=== PATIENT | male | born 1965 | race Caucasian/White ===

== ENCOUNTER 2016-11-11 08:11 | Emergency (ER) | payer BC, OTHER ==
[~2016-11-11] VITALS: Ht 170.2 cm; Wt 91.0 kg
[2016-11-11 08:14] VITALS: TEMP 36.6; Ht 170.2 cm; Wt 91.0 kg
[2016-11-11] MEDS ORDERED: KETOROLAC TROMETHAMINE 60 MG/2 ML VIAL IM STA (08:41)
[2016-11-11] MEDS ORDERED: KETOROLAC TROMETHAMINE 30 MG/ML VIAL IV STA (08:47)
[2016-11-11 09:11] LABS: PROTHROMBIN TIME (PATIENT) 10.9 SECONDS (9.0-12.0)
[2016-11-11 09:21] LABS: POINT OF CARE PRO-BNP 22 pg/ml (0-900); POINT OF CARE TROPONIN I < 0.030 ng/ml (0-0.045)
[2016-11-11 09:30] LABS: CKMB/CK RATIO 0.8 (0-3.0)
[2016-11-11] MEDS ORDERED: HYDROCODONE/ACETAMOPHEN 5/325MG TAB PO STA (09:57)
[2016-11-11] MEDS ORDERED: LORAZEPAM 2 MG/ML 1 ML VIAL IV STA (09:57)
--- NOTE | 2016-11-11 10:10 | DIAGNOSTIC IMAGING REPORT ---
CHEST 2 VIEWS ROUTINE CLINICAL HISTORY: 51 years-old Male presenting with left upper back pain. TECHNIQUE: PA and lateral views of the chest were obtained. COMPARISON: None. FINDINGS: Cardiomediastinal silhouette normal. Lungs and pleural spaces clear. Osseous structures and upper abdomen normal. IMPRESSION: 1. No acute cardiopulmonary disease. Electronically signed by: Nick Chan M.D. 11/11/2016 10:09 AM Dictated Date/Time: 11/11/2016 10:08 AM
--- NOTE | 2016-11-11 11:00 | DIAGNOSTIC IMAGING REPORT ---
C-SPINE ROUTINE 4 OR 5 VIEWS HISTORY: 51 years-old Male acute neck and shoulder pain without reported trauma COMPARISON: None available TECHNIQUE: 5 views of the cervical spine FINDINGS: The seventh vertebral segment is partially secured on the lateral view secondary to overlying shoulder. There is moderate intervertebral disc space narrowing at C5-C6 with mild intervertebral disc space narrowing at C6-C7. Endplate spurring is also most pronounced at these levels. Alignment is satisfactory without acute fracture or dislocation. Mild bilateral foraminal narrowing is present at C5-C6. Posterior elements also appear to be intact. There is no prevertebral soft tissue swelling. Lung apices appear clear. IMPRESSION: 1. No acute fracture or dislocation of the cervical spine. 2. Moderate intervertebral disc space narrowing at C5-C6 with endplate spurring causes mild bony foraminal narrowing bilaterally. 3. Mild intervertebral disc space narrowing at C6-C7. The above report was generated using voice recognition software. It may contain grammatical, syntax or spelling errors. Electronically signed by: Sid Garza M.D. 11/11/2016 10:59 AM Dictated Date/Time: 11/11/2016 10:56 AM
[2016-11-11] MEDS ORDERED: CYCL10TA6 PO (11:09)
[2016-11-11] MEDS ORDERED: HYDR-5688 PO (11:09)
--- NOTE | 2016-11-11 11:10 | EMERGENCY ROOM VISIT NOTE ---
History First contact with patient: 08:31 Chief Complaint: SHOULDER PAIN Stated Complaint: LEFT SHOULDER PAIN History of Present Illness The patient is a 51 year old male who presents to the Emergency Room with complaints of left shoulder pain which started 4 days ago. The patient denies any falls. 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 The patient states that the pain radiates to the back of his arm and under her shoulder blade which is worse with movement. He also gets some numbness in his index finger. He took 2 Advil on Friday without any relief. Last night he took an oxycodone from his brother to help him sleep. The patient states today he cannot get comfortable. The patient denies any chest pain or shortness of breath. The patient does admit to tobacco use but denies any recent travel or any recent leg pain. Review of Systems 10 system review was performed and was negative unless stated otherwise history of present illness. Past Medical/Surgical History No significant past medical history Social History Smoking Status: Never Smoker Smokeless Tobacco Use: Yes Alcohol Use: occasionally Drug Use: none Marital Status: Housing Status: lives with family Occupation Status: employed Current/Historical Medications No Active Prescriptions or Reported Meds Allergies Uncoded Allergies: NO KNOWN ALLERGIES (Allergy, Unknown, ., 11/11/16) Physical Exam Vital Signs Date Time Temp Pulse Resp B/P (MAP) Pulse Ox O2 Delivery O2 Flow Rate FiO2 11/11/16 09:51 72 18 145/100 97 11/11/16 08:14 36.6 77 18 154/100 97 Room Air Physical Exam GENERAL: 51-year-old white male appears uncomfortable secondary to left shoulder pain. MENTAL Status: Alert and oriented 3. NECK: Supple, no lymphadenopathy noted. No carotid bruits noted. LUNGS: Clear auscultation without wheezes rales or rhonchi. CARDIAC: Regular rate and rhythm without murmur. Pulses is full and equal throughout. ABDOMEN: Positive bowel sounds all 4 quadrants. Soft, nontender to palpation without organomegaly or masses. CERVICAL SPINE: No gross bony deformity noted. The patient is nontender to palpation over the spinous processes. He is some tenderness palpation in the left paravertebral region. LEFT SHOULDER: No gross bony deformity noted. The patient does not have any pain over the shoulder joint itself. The patient has tenderness palpation over the upper trapezius region. No erythema noted. Remainder chest wall is nontender. Professor [employer] strength is 5 out of 5 as compared to the right. Medical Decision & Procedures ER Provider Diagnostic Interpretation: C-SPINE ROUTINE 4 OR 5 VIEWS HISTORY: 51 years-old Male acute neck and shoulder pain without reported trauma COMPARISON: None available TECHNIQUE: 5 views of the cervical spine FINDINGS: The seventh vertebral segment is partially secured on the lateral view secondary to overlying shoulder. There is moderate intervertebral disc space narrowing at C5-C6 with mild intervertebral disc space narrowing at C6-C7. Endplate spurring is also most pronounced at these levels. Alignment is satisfactory without acute fracture or dislocation. Mild bilateral foraminal narrowing is present at C5-C6. Posterior elements also appear to be intact. There is no prevertebral soft tissue swelling. Lung apices appear clear. IMPRESSION: 1. No acute fracture or dislocation of the cervical spine. 2. Moderate intervertebral disc space narrowing at C5-C6 with endplate spurring causes mild bony foraminal narrowing bilaterally. 3. Mild intervertebral disc space narrowing at C6-C7. The above report was generated using voice recognition software. It may contain grammatical, syntax or spelling errors. Electronically signed by: Sid Garza M.D. 11/11/2016 10:59 AM CHEST 2 VIEWS ROUTINE CLINICAL HISTORY: 51 years-old Male presenting with left upper back pain. TECHNIQUE: PA and lateral views of the chest were obtained. COMPARISON: None. FINDINGS: Cardiomediastinal silhouette normal. Lungs and pleural spaces clear. Osseous structures and upper abdomen normal. IMPRESSION: 1. No acute cardiopulmonary disease. Electronically signed by: Nick Chan M.D. 11/11/2016 10:09 AM Dictated Date/Time: 11/11/2016 10:08 AM Laboratory Results Test 11/11/16 08:54 11/11/16 08:57 Prothrombin Time 10.9 SECONDS (9.0-12.0) Prothromb Time International Ratio 1.0 (0.9-1.1) Activated Partial Thromboplast Time 26.1 SECONDS (21.0-31.0) Partial Thromboplastin Ratio 1.0 Total Creatine Kinase 93 U/L (39-308) Creatine Kinase MB 0.7 ng/ml (0.5-3.6) Creatine Kinase MB Ratio 0.8 (0-3.0) Bedside D-Dimer 247 ng/mlFEU (0-450) Bedside Troponin I < 0.030 ng/ml (0-0.045) JH-Dit-W-Type Natriuretic Peptide 22 pg/ml (0-900) Medications Administered Medications (Trade) Dose Ordered Sig/Johnny Route Start Time Stop Time Status Last Admin Dose Admin Ketorolac Tromethamine (Toradol Inj) 30 mg NOW STAT IV 11/11/16 08:47 11/11/16 08:48 DC 11/11/16 08:59 30 MG Lorazepam (Ativan Inj) 1 mg NOW STAT IV 11/11/16 09:57 11/11/16 09:58 DC 11/11/16 10:05 1 MG Acetaminophen/ Hydrocodone Bitart ([place] 5/325 Tab) 2 tab NOW STAT PO 11/11/16 09:57 11/11/16 09:58 DC 11/11/16 10:04 2 TAB ED Course The patient was evaluated. The patient's EMR and medication list were reviewed. The patient initially stated that he drove himself to the emergency room and could not get someone to pick him up. IV access was obtained. The patient was given Toradol 30 mg IV for pain. Chest x-ray was ordered and interpreted by the radiologist and myself as above without any acute findings. Coags were normal. The care d-dimer was within normal range. Troponin was within normal range. The patient later stated that he was able to get his daughter to come pick him up and therefore he could receive something for pain. The patient was given Ativan 1 mg IV for muscle relaxer and [place] 5/325 mg 2 tablets by mouth for pain. An x-ray of the cervical spine was ordered and interpreted by the radiologist as above with some disc space narrowing at the C5 -C6 level and C6-C7 level. The patient was informed of the findings and was reevaluated. He was feeling much better. The patient was discharged home with his daughter driving. Medical Decision Differential diagnosis include pulmonary embolus, cervical radiculopathy, cervical fracture, spinal stenosis, muscular strain Impression Primary Impression: Strain of left trapezius muscle Additional Impression: Degenerative arthritis of cervical spine Departure Information Dispostion Home / Self-Care Condition GOOD Prescriptions Hydrocodone/Acetaminophen 5MG/325MG ([place] 5MG/325MG) Tab 1-2 TABLET PO Q6 Y for Pain, #20 TAB For Initial Treatment Prov: Joaquina, Xiomara M., PA-C 11/11/16 Cyclobenzaprine Hcl (FLEXERIL) 10 Mg Tab 10 MG PO TID, #21 TAB Prov: Xiomara Kunz PA-C 11/11/16 Referrals No Doctor, Assigned (PCP) Forms HOME CARE DOCUMENTATION FORM, IMPORTANT VISIT INFORMATION Patient Instructions My [facility] Additional Instructions May try moist heat intermittently to the affected area. Ibuprofen 600 mg every 6 hours with food for pain. Take [place] as needed for more severe pain. Do not drive while taking the [place]. Take Flexeril as directed. Do not drive while taking the Flexeril. Avoid any strenuous exercise which her upper body until symptoms are resolved. If symptoms are not improving recommend follow-up with your family doctor for possible referral to neurology or spine surgeon. Problem Qualifiers Primary Impression: Strain of left trapezius muscle Encounter type: initial encounter Qualified Codes: S46.812A - Strain of other muscles, fascia and tendons at shoulder and upper arm level, left arm, initial encounter Additional Impression: Degenerative arthritis of cervical spine Spinal osteoarthritis complication: with radiculopathy Qualified Codes: M47.22 - Other spondylosis with radiculopathy, cervical region
[2016-11-11 11:30] VITALS: BP 127/70; PULSE 70; O2SAT 98
== END 2016-11-11 11:44 | disposition home or self-care (01) ==
LOC: C.EDB 08:12
DX: S46.912A Strain of unspecified muscle, fascia and tendon at shoulder and upper arm level, left arm, initial encounter (principal); X58.XXXA Exposure to other specified factors, initial encounter; M50.322 Other cervical disc degeneration at C5-C6 level; M50.323 Other cervical disc degeneration at C6-C7 level

== ENCOUNTER 2017-08-02 13:15 | Emergency (ER) | payer BC, OTHER ==
[~2017-08-02] VITALS: Ht 170.2 cm; Wt 87.2 kg
[2017-08-02 13:21] VITALS: TEMP 37; Ht 170.2 cm; Wt 87.2 kg
[2017-08-02] MEDS ORDERED: SODIUM CHLORIDE 0.9% 1000ML 1,000 ML IV ONE (13:45)
[2017-08-02 14:10] LABS: BASO % 0.3 %; BASO ABS # 0.02 K/uL (0-0.2); EOS % 0.6 %; EOS ABS # 0.05 K/uL (0-0.5); HEMOGLOBIN 15.7 g/dL (14.0-18.0); IG# 0.02 K/uL (0.00-0.02); LYMPH % 12.4 %; LYMPH ABS # 0.96 K/uL (1.2-3.4); MEAN CELL VOLUME 84.2 fL (80-100); MEAN CORPUSCULAR HEMOGLOBIN 31.5 pg (25-34); MEAN CORPUSCULAR HGB CONC 37.4 g/dl (32-36); MEAN PLATELET VOLUME 8.9 fL (7.4-10.4); MONO % 6.2 %; MONO ABS # 0.48 K/uL (0.11-0.59); NEUT % 80.2 %; PLATELET COUNT 165 K/uL (130-400); RED CELL DISTRIBUTION WIDTH CV 12.4 % (11.5-14.5); RED CELL DISTRIBUTION WIDTH SD 37.7 fL (36.4-46.3); WHITE BLOOD COUNT 7.73 K/uL (4.8-10.8)
[2017-08-02] MEDS ORDERED: CIPR1TAB11 PO (14:21)
[2017-08-02 14:28] LABS: ALBUMIN 4.2 gm/dl (3.4-5.0); CALCIUM 9.1 mg/dl (8.5-10.1); CREATININE 1.07 mg/dl (0.60-1.40); POTASSIUM 3.5 mmol/L (3.5-5.1)
[2017-08-02 14:31] LABS: TOTAL PROTEIN 7.5 gm/dl (6.4-8.2)
[2017-08-02] MEDS ORDERED: OPTIRAY 320 IV PRN (14:45)
--- NOTE | 2017-08-02 14:46 | EMERGENCY ROOM VISIT NOTE ---
History First contact with patient: 13:25 Chief Complaint: URINARY SYMPTOMS Stated Complaint: PAIN IN BLADDER/ABD, ON ANITBIOTIC,PROSTATE INFECT Nursing Triage Summary: Dx with prostatis a few weeks ago and placed on atb- Cipro. Burning with urination. History of Present Illness The patient is a 52 year old male who presents to the Emergency Room with complaints of urinary symptoms and lower abdominal discomfort that has been going on for approximately the last 6 weeks. The patient reports burning with urination. He denies any blood in his urine. He denies any flank pain. No fever. The patient saw his primary care physician twice. He was treated once for UTI he went back to his primary care physician. A rectal exam was performed. He was told that he had prostatitis. The patient was put on a four- week course of antibiotics. He temporarily got better with a 2 week course of antibiotics.. His symptoms returned about 1 week after finishing the antibiotics. He is extremely nervous about what is going on. He denies any nausea, but his appetite has not been up to par. He also reports some changes in bowel habits. He feels like he has to go, and cannot have a significant bowel movement. He denies any blood in his stool. No history of diverticulitis. Review of Systems 10 system review performed and negative unless noted in HPI or below Past Medical/Surgical History GERD Social History Smoking Status: Never Smoker Alcohol Use: occasionally Drug Use: none Marital Status: Housing Status: lives with family Occupation Status: employed Current/Historical Medications Scheduled Ciprofloxacin Tab (Cipro), 250 MG PO BID Phenazopyridine HCl (Pyridium), 200 MG PO TID Physical Exam Vital Signs Date Time Temp Pulse Resp B/P (MAP) Pulse Ox O2 Delivery O2 Flow Rate FiO2 08/02/17 17:46 68 18 134/92 98 Room Air 08/02/17 16:47 60 18 121/67 98 Room Air 08/02/17 14:42 69 17 131/83 96 Room Air 08/02/17 13:21 37.0 88 20 140/91 95 Room Air Physical Exam VITALS: Vitals are noted on the nurse's note and reviewed by myself. Vital signs stable. GENERAL: 52-year-old male, mildly anxious in appearance,, SKIN: The skin was without rashes, erythema, edema, or bruising. There is no tenting of the skin. Capillary reflex less than 2 seconds. HEAD: Normocephalic atraumatic. MOUTH: Mucous membranes moist. NECK: Supple without nuchal rigidity. No lymphadenopathy. Cervical spine is nontender. No JVD. HEART: Regular rate and rhythm without murmurs gallops or rubs. LUNGS: Clear to auscultation bilaterally without wheezes, rales or rhonchi. No accessory muscle use. ABDOMEN: Positive bowel sounds x 4.Soft, tenderness to palpation in the suprapubic region, without organomegaly. No guarding or rebound tenderness. No CVA tenderness bilaterally MUSCULOSKELETAL: No muscle atrophy, erythema, or edema noted. Strength 5/5 throughout. NEURO: Patient was alert and oriented to person place and time. Normal sensation to touch. No focal neurological deficits. Medical Decision & Procedures ER Provider Diagnostic Interpretation: Scrotal US IMPRESSION: Trace bilateral hydroceles. Otherwise, normal testes. Electronically signed by: Chito Naik M.D. 08/02/2017 5:05 PM Dictated Date/Time: 08/02/2017 5:[address] abdomen and pelvisIMPRESSION: 1. No evidence of bowel obstruction. No evidence of free air 2. No evidence of acute diverticulitis. No evidence of acute appendicitis. 3. No evidence of hydronephrosis 4. Borderline bladder wall thickening Electronically signed by: Pepe Mak M.D. 08/02/2017 3:01 PM Dictated Date/Time: 08/02/2017 2:56 PM Laboratory Results 08/02/17 14:00 Red Blood Count 4.99, Mean Corpuscular Volume 84.2, Mean Corpuscular Hemoglobin 31.5, Mean Corpuscular Hemoglobin Concent 37.4, Mean Platelet Volume 8.9, Neutrophils (%) (Auto) 80.2, Lymphocytes (%) (Auto) 12.4, Monocytes (%) (Auto) 6.2, Eosinophils (%) (Auto) 0.6, Basophils (%) (Auto) 0.3, Neutrophils # (Auto) 6.20, Lymphocytes # (Auto) 0.96, Monocytes # (Auto) 0.48, Eosinophils # (Auto) 0.05, Basophils # (Auto) 0.02 08/02/17 14:00 Test 08/02/17 13:50 08/02/17 14:00 Urine Color YELLOW Urine Appearance CLEAR (CLEAR) Urine pH 5.5 (4.5-7.5) Urine Specific [place] 1.013 (1.000-1.030) Urine Protein NEG (NEG) Urine Glucose (UA) NEG (NEG) Urine Ketones 1+ (NEG) Urine Occult Blood NEG (NEG) Urine Nitrite NEG (NEG) Urine Bilirubin NEG (NEG) Urine Urobilinogen NEG (NEG) Urine Leukocyte Esterase NEG (NEG) White Blood Count 7.73 K/uL (4.8-10.8) Red Blood Count 4.99 M/uL (4.7-6.1) Hemoglobin 15.7 g/dL (14.0-18.0) Hematocrit 42.0 % (42-52) Mean Corpuscular Volume 84.2 fL (80-100) Mean Corpuscular Hemoglobin 31.5 pg (25-34) Mean Corpuscular Hemoglobin Concent 37.4 g/dl (32-36) Platelet Count 165 K/uL (130-400) Mean Platelet Volume 8.9 fL (7.4-10.4) Neutrophils (%) (Auto) 80.2 % Lymphocytes (%) (Auto) 12.4 % Monocytes (%) (Auto) 6.2 % Eosinophils (%) (Auto) 0.6 % Basophils (%) (Auto) 0.3 % Neutrophils # (Auto) 6.20 K/uL (1.4-6.5) Lymphocytes # (Auto) 0.96 K/uL (1.2-3.4) Monocytes # (Auto) 0.48 K/uL (0.11-0.59) Eosinophils # (Auto) 0.05 K/uL (0-0.5) Basophils # (Auto) 0.02 K/uL (0-0.2) RDW Standard Deviation 37.7 fL (36.4-46.3) RDW Coefficient of Variation 12.4 % (11.5-14.5) Immature Granulocyte % (Auto) 0.3 % Immature Granulocyte # (Auto) 0.02 K/uL (0.00-0.02) Anion Gap 5.0 mmol/L (3-11) Est Creatinine Clear Calc Drug Dose 84.2 ml/min Estimated GFR () 91.4 Estimated GFR (Non- 78.8 BUN/Creatinine Ratio 12.0 (10-20) Calcium Level 9.1 mg/dl (8.5-10.1) Total Bilirubin 0.7 mg/dl (0.2-1) Aspartate Amino Transf (AST/SGOT) 15 U/L (15-37) Alanine Aminotransferase (ALT/SGPT) 26 U/L (12-78) Alkaline Phosphatase 77 U/L (45-117) Total Protein 7.5 gm/dl (6.4-8.2) Albumin 4.2 gm/dl (3.4-5.0) Globulin 3.3 gm/dl (2.5-4.0) Albumin/Globulin Ratio 1.3 (0.9-2) Medications Administered Medications (Trade) Dose Ordered Sig/Johnny Route Start Time Stop Time Status Last Admin Dose Admin Sodium Chloride 1,000 ml @ 999 mls/hr Q1H1M ONCE IV 08/02/17 13:45 08/02/17 14:45 DC 08/02/17 14:01 999 MLS/HR Phenazopyridine HCl (Pyridium Tab) 200 mg NOW STAT PO 08/02/17 15:38 08/02/17 15:39 DC 08/02/17 15:46 200 MG ED Course Patient was seen and examined Vital signs including blood pressure were reviewed medications list was verified with patient Labs were obtained, and a saline lock was established The patient declined pain and anxiety medication. He was hydrated with 1 L of normal saline Imaging was performed and reviewed The case was discussed with my supervising physician The patient was given 1 dose of Pyridium Upon reevaluation, his urinary symptoms were slightly improved. We thoroughly discussed his workup. He voiced understanding, was comfortable being discharged home. I reviewed discharge instructions the patient. They voiced understanding and had no further questions. Medical Decision Differential diagnosis: UTI, prostatitis, orchitis, ureteral stone, pyelonephritis, malignancy, diverticulitis, interstitial cystitis This patient is a pleasant 52-year-old male presents to the emergency department with lower abdominal pain and urinary symptoms for several weeks. He is currently being treated with antibiotics. He was nontoxic in appearance. He had mild tenderness in the suprapubic region. Workup reveals no leukocytosis. His urinalysis appears clean. Renal function intact. A CT scan was unremarkable. There are no signs of malignancy. Ultrasound was also unremarkable. The etiology of his symptoms are unclear. The patient had some symptomatic relief with Pyridium in the emergency department. He was encouraged to follow-up as soon as possible with a urologist. He was comfortable with this plan. He will continue his antibiotics. He agrees to return with any new or worsening symptoms. This chart was completed in part utilizing [employer] Speech Voice Recognition software. Attempts were made to minimize the grammatical errors, random word insertions, pronoun errors and incomplete sentences. Any formal questions or concerns about the content, text or information contained within the body of this dictation should be directly addressed to the provider for clarification. Medication Reconcilliation Current Medication List: was personally reviewed by me Blood Pressure Screening Patient's blood pressure: Elevated blood pressure Blood pressure disposition: Elevated BP felt to be situational Impression Primary Impression: Symptoms involving urinary system Departure Information Prescriptions Phenazopyridine HCl (Pyridium) 200 Mg Tab 200 MG PO TID, #20 TAB Prov: Belle Rodriguez PA-C 08/02/17 Referrals Jake Ba III, M.D. (PCP) Patient Instructions My [facility]
--- NOTE | 2017-08-02 15:02 | DIAGNOSTIC IMAGING REPORT ---
CT ABD/PELVIS IV CONTRAST ONLY CLINICAL HISTORY: Lower abdominal/pelvic pain. COMPARISON STUDY: None. TECHNIQUE: Following the IV administration of 94 mL of Optiray-320, CT scan of the abdomen and pelvis was performed from the lung bases to the proximal femurs. Images are reviewed in the axial, sagittal, and coronal planes. IV contrast was administered without complication. A dose lowering technique was utilized adhering to the principles of ALARA. CT DOSE: 461.61 mGy.cm FINDINGS: Lower chest: There is respiratory motion artifact. There is mild dependent atelectatic change Liver: The contrast-enhanced liver is normal in size, contour, and attenuation. There is no intrahepatic biliary ductal dilatation. The hepatic veins and portal veins are patent. Gallbladder: Unremarkable. Spleen: Normal in size and attenuation. Pancreas: Unremarkable. Adrenal glands: Unremarkable. Kidneys: There is symmetric renal cortical enhancement. The kidneys are normal in size without hydronephrosis. Bowel: There are no transition zones indicate bowel obstruction. There is no evidence of acute diverticulitis. The appendix appears normal. Peritoneum: There is no intraperitoneal free air or abdominal ascites. There is small fat-containing umbilical hernia. Vasculature: The abdominal aorta is normal in course and caliber. Adenopathy: None. Pelvic viscera: There is borderline bladder wall thickening Skeletal structures: No destructive osseous lesions are seen. IMPRESSION: 1. No evidence of bowel obstruction. No evidence of free air 2. No evidence of acute diverticulitis. No evidence of acute appendicitis. 3. No evidence of hydronephrosis 4. Borderline bladder wall thickening Electronically signed by: Pepe Mak M.D. 08/02/2017 3:01 PM Dictated Date/Time: 08/02/2017 2:56 PM
[2017-08-02] MEDS ORDERED: PHENAZOPYRIDINE HCL 200 MG TAB PO STA (15:38)
--- NOTE | 2017-08-02 17:07 | DIAGNOSTIC IMAGING REPORT ---
TESTICULAR ULTRASOUND HISTORY: Dysuria, intermittent testicular pain COMPARISON: None. FINDINGS: Right testis: 5.1 cm. There are no intratesticular masses. Normal color flow. Trace hydrocele. The epididymis is unremarkable. Left testis: 4.7 cm. There are no intratesticular masses. Normal color flow. Trace hydrocele. The epididymis is unremarkable. IMPRESSION: Trace bilateral hydroceles. Otherwise, normal testes. Electronically signed by: Chito Naik M.D. 08/02/2017 5:05 PM Dictated Date/Time: 08/02/2017 5:04 PM
[2017-08-02] MEDS ORDERED: PHEN-876 PO (17:36)
[2017-08-02 17:46] VITALS: BP 134/92; PULSE 68; O2SAT 98
== END 2017-08-02 17:47 | disposition home or self-care (01) ==
LOC: C.EDB 13:17
DX: R39.9 Unspecified symptoms and signs involving the genitourinary system (principal)

== ENCOUNTER 2020-10-02 14:06 | Observation (INO) ==
[2020-10-02 15:02] LABS: Basophils # (auto) 0.04 K/uL (0-0.2); Basophils % (auto) 0.6 %; Eosinophils # (auto) 0.13 K/uL (0-0.5); Eosinophils % (auto) 1.9 %; Hematocrit (blood only) 43.5 % (42-52); Hemoglobin 15.7 g/dL (14.0-18.0); Immature Granulocytes # (auto) 0.01 K/uL (0.00-0.02); Immature Granulocytes % (auto) 0.1 %; Lymphocytes # (auto) 0.97 K/uL (1.2-3.4); Lymphocytes % (auto) 14.5 %; Mean Corpuscular Hemoglobin 30.9 pg (25-34); Mean Corpuscular Hgb Conc 36.1 g/dL (32-36); Mean Corpuscular Volume 85.6 fL (80-100); Mean Platelet Volume 9.1 fL (7.4-10.4); Monocytes # (auto) 0.53 K/uL (0.11-0.59); Monocytes % (auto) 7.9 %; Neutrophils # (auto) 5.02 K/uL (1.4-6.5); Platelet Count 182 K/uL (130-400); RDW Coefficient of Variation 12.4 % (11.5-14.5); RDW Standard Deviation 38.7 fL (36.4-46.3); Red Blood Count 5.08 M/uL (4.7-6.1)
--- NOTE | 2020-10-02 15:22 | XRay Report ---
XR chest 1V portable CLINICAL HISTORY: Chest Pain COMPARISON STUDY: Chest radiograph January 07, 2019. FINDINGS: Lung volumes are normal. Lungs are clear. There is no pneumothorax or pleural effusion. Car diac size is normal. Mediastinal contours are normal. There is no evidence for pulmonary edema. IMPRESSION: No acute cardiopulmonary findings. ACT 112: Negative or not required by law. Electronically signed by: Andrade Velasco M.D. 10/02/2020 3:21 PM
[2020-10-02 15:29] LABS: Alanine Aminotransferase 30 U/L (12-78); Albumin Globulin Ratio 1.1 (0.9-2); Albumin Level 3.7 gm/dl (3.4-5.0); Alkaline Phosphatase 70 U/L (45-117); BUN Creatinine Ratio 10.7 (10-20); Bilirubin,Total 0.5 mg/dl (0.2-1); Blood Urea Nitrogen 12 mg/dl (7-18); Calcium 8.9 mg/dl (8.5-10.1); Carbon Dioxide 29 mmol/L (21-32); Chloride 107 mmol/L (98-107); Creatinine Clr Calc Pharmacy 82.7 ml/min; Est GFR (African American) 85.6 ml/min; Est GFR (Non-African American) 73.8 ml/min; Globulin 3.4 gm/dl (2.5-4.0); Glucose 108 mg/dl (70-99); Sodium 141 mmol/L (136-145); Total Protein 7.1 gm/dl (6.4-8.2); Troponin I < 0.015 ng/ml (0-0.045)
--- NOTE | 2020-10-02 16:49 | Emergency Department Note ---
Impression & Plan Atypical chest pain, Tobacco use ED Provider Note NAME: DIEGO HOLT AGE: 55 SEX: M : 1965 ARRIVES VIA: Walk-In INFORMANT: Patient, ED PROVIDER(S): Daniel Cox MD Chief Complaint: Chest pain HPI: Patient does present with concern for chest pains that been ongoing intermittently over the last 2 years but have worsened in duration and intensity over the last day or so. The patient did have pain after lunchtime today and left chest with some radiation of the left arm. The patient does state he is right-hand dominant and is occasional reproducible not necessarily exertional as it seems to improve with activity. No history DVT or PE. The patient does have family history of a brother having heart attack in his 50s. Patient does use alcohol and chews tobacco. Patient dates he does not take other medications although he does have a remote history of hypertension. Blood pressure today is 120s over 70s. 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 Patient denies any leg swelling or history of DVT or PE. No recent surgeries, hospitalizations or procedures. Patient denies any sick contacts ROS: See HPI for pertinent positives and negatives. A total of 10 systems were reviewed and otherwise negative. Past medical history: See below Surgical history: See below Social history: See below Physical Exam: GENERAL: Well appearing, well nourished, NAD, non-toxic. EYE EXAM: Normal conjunctiva. PERRL, no anisocoria and EOM's grossly intact w/o pain. NECK: Supple, no nuchal rigidity, no adenopathy, non-tender. No signs of meningismus. LUNGS: Clear to auscultation. Normal chest wall mechanics. HEART: NSR, no MRG. ABDOMEN: Abdomen soft, non-tender, normo-active bowel sounds, no masses, no rebound or guarding. BACK: No CVA TTP. SKIN: No rashes and no bruising. UPPER EXTREMITIES: Upper extremities are grossly normal. LOWER EXTREMITIES: Grossly normal, no edema. Negative Homans' sign bilaterally. NEURO EXAM: A&O x3, cranial nerves II-XII grossly intact, normal speech, moves all 4 extremities on command w/o issue. Differential diagnoses: Cardiac ischemia, aortic dissection, pulmonary embolism, pneumothorax, pneumonia, pericarditis, myocarditis, esophageal rupture, GERD, cholecystitis, pancreatitis, musculoskeletal, as well as other pathologies. Course: Patient was seen and evaluated the bedside. Full history physical exam was performed. EKG interpreted by me Normal sinus rhythm, rate of 70, normal intervals, normal axis, T wave versions inferiorly in 3 and aVF. Patient's T WI is new from comparison EKG January 07, 2019. Imaging Studies: See below Cardiac monitoring: An order was placed for continuous cardiac monitoring. The monitor shows a rate of 71 with sinus rhythm. MDM: Patient was seen due to concern for chest pain. The patient is moderate risk given the patient's family history age alcohol and tobacco use. Patient also does have T wave inversions inferiorly. Patient did have mild improvement with aspirin and nitro. I did speak with the on-call hospitalist Mariela Lerma PA-C and the patient was admitted by Dr. Shields. Past Med/Surg History Medical History GERD (gastroesophageal reflux disease) Surgical History No significant past surgical history Social History Smoking Status: Never smoker Tobacco Type: Smokeless Tobacco (Dip or Chew) Hx Alcohol Use: Yes Alcohol type: beer Hx Substance Use: No Preferred Language: Cameroonian Communication Ability: Effective Tile Burner Required: No Beliefs That Will Affect Care: None Current Living Situation: Spouse Feels Safe at Home: Yes Assistive Devices: None Allergies Allergies Allergy/AdvReac Type Severity Reaction Status Date / Time No Known Allergies Allergy Verified 10/02/20 17:22 Home Meds Home Medications Medication Instructions Recorded Confirmed famotidine 20 mg PO DAILY 10/02/20 10/02/20 psyllium husk [Daily Fiber] 0.52 g PO DAILY 10/02/20 10/02/20 Results & Data (ED) Vital Signs Vital Signs - 24 hr 10/02/20 14:13 10/02/20 16:18 10/02/20 16:23 Temperature 37.4 C Temperature Source Oral Pulse Rate 78 70 Pulse Rate from SpO2 Sensor 72 Pulse Rhythm Regular Respiratory Rate 18 16 Respiratory Effort / Characteristics Non-Labored Spontaneous Respiratory Depth Normal Respiratory Pattern Regular Blood Pressure 162/87 H 130/98 Blood Pressure Mean 112 108 Pulse Oximetry 97 97 Oxygen Delivery Method Room Air Room Air Sepsis Recent Fever Within 48 Hours No Sepsis New/Unexplained Change in Mental Status No Sepsis Action Taken by Nursing No Action Required 10/02/20 16:30 10/02/20 16:31 10/02/20 17:00 Temperature Temperature Source Pulse Rate 71 67 72 Pulse Rate from SpO2 Sensor 69 67 70 Pulse Rhythm Respiratory Rate 13 15 18 Respiratory Effort / Characteristics Respiratory Depth Respiratory Pattern Blood Pressure 125/84 124/79 Blood Pressure Mean 97 94 Pulse Oximetry 96 97 95 Oxygen Delivery Method Sepsis Recent Fever Within 48 Hours Sepsis New/Unexplained Change in Mental Status Sepsis Action Taken by Nursing 10/02/20 17:01 10/02/20 17:30 10/02/20 18:00 Temperature Temperature Source Pulse Rate 71 65 60 Pulse Rate from SpO2 Sensor 72 65 60 Pulse Rhythm Respiratory Rate 18 13 16 Respiratory Effort / Characteristics Respiratory Depth Respiratory Pattern Blood Pressure 115/74 133/85 Blood Pressure Mean 87 101 Pulse Oximetry 97 97 97 Oxygen Delivery Method Sepsis Recent Fever Within 48 Hours Sepsis New/Unexplained Change in Mental Status Sepsis Action Taken by Nursing 10/02/20 18:30 Temperature Temperature Source Pulse Rate 61 Pulse Rate from SpO2 Sensor 61 Pulse Rhythm Respiratory Rate 14 Respiratory Effort / Characteristics Respiratory Depth Respiratory Pattern Blood Pressure 135/88 Blood Pressure Mean 103 Pulse Oximetry 96 Oxygen Delivery Method Sepsis Recent Fever Within 48 Hours Sepsis New/Unexplained Change in Mental Status Sepsis Action Taken by [facility] Medications Current Medication List: was personally reviewed by me Laboratory Data Attestation: I reviewed the patient's lab results. Result diagrams: 10/02/20 14:45 10/02/20 16:03 Lab Results 10/02/20 10/02/20 10/02/20 Range/Units 14:45 14:45 14:45 WBC 6.70 (4.8-10.8) K/uL RBC 5.08 (4.7-6.1) M/uL Hgb 15.7 (14.0-18.0) g/dL Hct 43.5 (42-52) % MCV 85.6 (80-100) fL MCH 30.9 (25-34) pg MCHC 36.1 H (32-36) g/dL RDW Std Deviation 38.7 (36.4-46.3) fL RDW Coeff of Hosea 12.4 (11.5-14.5) % Plt Count 182 (130-400) K/uL MPV 9.1 (7.4-10.4) fL Immature Gran % (Auto) 0.1 % Neut % (Auto) 75.0 % Lymph % (Auto) 14.5 % [place] % (Auto) 7.9 % Eos % (Auto) 1.9 % Baso % (Auto) 0.6 % Neut # (Auto) 5.02 (1.4-6.5) K/uL Lymph # (Auto) 0.97 L (1.2-3.4) K/uL [place] # (Auto) 0.53 (0.11-0.59) K/uL Eos # (Auto) 0.13 (0-0.5) K/uL Baso # (Auto) 0.04 (0-0.2) K/uL Immature Gran # (Auto) 0.01 (0.00-0.02) K/uL PT Cancelled INR Cancelled APTT Cancelled PTT Ratio Cancelled Sodium 141 (136-145) mmol/L Potassium (3.5-5.1) mmol/L Chloride 107 (98-107) mmol/L Carbon Dioxide 29 (21-32) mmol/L Anion Gap 5.0 (3-11) BUN 12 (7-18) mg/dl Creatinine 1.11 (0.6-1.4) mg/dl Est Cr Clr Drug Dosing 82.7 ml/min Est GFR ( Amer) 85.6 ml/min Est GFR (Non-Af Amer) 73.8 ml/min BUN/Creatinine Ratio 10.7 (10-20) Glucose 108 H (70-99) mg/dl Calcium 8.9 (8.5-10.1) mg/dl Total Bilirubin 0.5 (0.2-1) mg/dl AST (15-37) U/L ALT 30 (12-78) U/L Alkaline Phosphatase 70 (45-117) U/L Troponin I < 0.015 (0-0.045) ng/ml Total Protein 7.1 (6.4-8.2) gm/dl Albumin 3.7 (3.4-5.0) gm/dl Globulin 3.4 (2.5-4.0) gm/dl Albumin/Globulin Ratio 1.1 (0.9-2) COVID-19 Eval Order SARS-CoV-2 (PCR) (Negative) 10/02/20 10/02/20 10/02/20 Range/Units 16:03 17:36 17:36 WBC (4.8-10.8) K/uL RBC (4.7-6.1) M/uL Hgb (14.0-18.0) g/dL Hct (42-52) % MCV (80-100) fL MCH (25-34) pg MCHC (32-36) g/dL RDW Std Deviation (36.4-46.3) fL RDW Coeff of Hosea (11.5-14.5) % Plt Count (130-400) K/uL MPV (7.4-10.4) fL Immature Gran % (Auto) % Neut % (Auto) % Lymph % (Auto) % [place] % (Auto) % Eos % (Auto) % Baso % (Auto) % Neut # (Auto) (1.4-6.5) K/uL Lymph # (Auto) (1.2-3.4) K/uL [place] # (Auto) (0.11-0.59) K/uL Eos # (Auto) (0-0.5) K/uL Baso # (Auto) (0-0.2) K/uL Immature Gran # (Auto) (0.00-0.02) K/uL PT INR APTT PTT Ratio Sodium (136-145) mmol/L Potassium 4.0 (3.5-5.1) mmol/L Chloride (98-107) mmol/L Carbon Dioxide (21-32) mmol/L Anion Gap (3-11) BUN (7-18) mg/dl Creatinine (0.6-1.4) mg/dl Est Cr Clr Drug Dosing ml/min Est GFR ( Amer) ml/min Est GFR (Non-Af Amer) ml/min BUN/Creatinine Ratio (10-20) Glucose (70-99) mg/dl Calcium (8.5-10.1) mg/dl Total Bilirubin (0.2-1) mg/dl AST 17 (15-37) U/L ALT (12-78) U/L Alkaline Phosphatase (45-117) U/L Troponin I (0-0.045) ng/ml Total Protein (6.4-8.2) gm/dl Albumin (3.4-5.0) gm/dl Globulin (2.5-4.0) gm/dl Albumin/Globulin Ratio (0.9-2) COVID-19 Eval Order Covid19 at [facility] SARS-CoV-2 (PCR) NEGATIVE (Negative) Administered Medications Discontinued Medications Aspirin (Aspirin Chew 324 Mg) 324 mg PO NOW STA Stop: 10/02/20 17:11 Last Admin: 10/02/20 17:35 Dose: 324 mg Documented by: [id number] Nitroglycerin (Nitroglycerin 2% Ointment 30gm Tube) 0.5 inch EXT NOW ONE Stop: 10/02/20 17:11 Last Admin: 10/02/20 17:35 Dose: 0.5 inch Documented by: [id number] Imaging Data Radiologist's Impression: Chest X-Ray 10/02/20 14:21 XR chest 1V portable CLINICAL HISTORY: Chest Pain COMPARISON STUDY: Chest radiograph January 07, 2019. FINDINGS: Lung volumes are normal. Lungs are clear. There is no pneumothorax or pleural effusion. Cardiac size is normal. Mediastinal contours are normal. There is no evidence for pulmonary edema. IMPRESSION: No acute cardiopulmonary findings. ACT 112: Negative or not required by law. Electronically signed by: Andrade Velasco M.D. 10/02/2020 3:21 PM Discharge Plan Visit Data Chief Complaint: Chest Pain Stated Complaint: CHEST PAIN ED Provider: Daniel Cox Discharge Problem: Atypical chest pain, Tobacco use Forms Stand Alone Forms: [email or web address] Prescriptions Prescriptions: No Action famotidine 20 mg Tablet 20 mg PO DAILY RF: 0 psyllium husk [Daily Fiber] 0.52 gram Capsule 0.52 g PO DAILY RF: 0
--- NOTE | 2020-10-02 17:08 | Electrocardiogram Report ---
Test Reason : Blood Pressure : / mmHG Vent. Rate : 070 BPM Atrial Rate : 070 BPM P-R Int : 136 ms QRS Dur : 098 ms QT Int : 396 ms P-R-T Axes : 054 034 -05 degrees QTc Int : 427 ms Normal sinus rhythm When compared with ECG of 07-JAN-2019 00:53, Minimal criteria for Inferior infarct are no longer Present T wave inversion now evident in Inferior leads Confirmed by Carlos Norris ([id number]) on 10/02/2020 5:07:40 PM Referred By: Confirmed By:Rashard Norris
[2020-10-02] MEDS ORDERED: ASPIRIN CHEW 324 MG PO STA (17:10)
[2020-10-02] MEDS ORDERED: NITROGLYCERIN 2% OINTMENT 30GM TUBE EXT ONE (17:10)
--- NOTE | 2020-10-02 18:59 | History & Physical Report ---
Date of Service October 02, 2020 Assessment & Plan (1) Atypical chest pain: -admit to tele -patient presenting from home with atypical chest pain -In the ED, EKG shows new T wave inversions in the inferior leads. Initial troponin negative -History strongly suggests musculoskeletal nature of pain however given EKG changes and positive family history, will consult cardiology for further recommendations -Continue to cycle cardiac enzymes, repeat EKG in the morning -Given neck pain and left arm numbness, will order cervical spine MRI (2) GERD (gastroesophageal reflux disease): -Continue famotidine -Patient encouraged to schedule outpatient EGD as previously recommended (3) DVT prophylaxis: -SCDs History of Present Illness Chief Complaint: Chest Pain Primary Care Provider: Jake Ba MD 53 y.o male with PMH GERD and other problems listed below who presents to the ED for evaluation of chest pain. Patient reports that after lunch while at work today he developed a left-sided chest pain. Patient reports issues with chest pain for the past couple of years. Has a history of GERD and was referred for EGD however has not been completed yet. Patient also reports a history of " pinched nerves" in the neck. States that he received injections in the neck in the past and was referred for MRI however that has not been completed yet either. Patient reports completing 6 weeks of physical therapy for his neck which did improve his symptoms for a period of time. Today, patient describes the pain as being located in left side of his chest and describes it as sharp in nature. Also has associated neck pain with left arm numbness. Pain seems to radiate from the neck into the shoulder and then down into the chest. Pain is worse with movement of the left arm. Patient denies associated shortness of breath, diaphoresis, nausea, lightheadedness, dizziness, syncopal events. No other recent illnesses, fevers, chills. Denies abdominal pain, vomiting, diarrhea. No urinary symptoms. In the ED, EKG shows new T wave inversions in the inferior leads. Initial troponin is negative. Patient was given a topical nitroglycerin without any change in his symptoms. Patient is hemodynamically stable. He was given a full dose aspirin. Allergies Allergy/AdvReac Type Severity Reaction Status Date / Time No Known Allergies Allergy Verified 10/02/20 17:22 Home Medications Medication Instructions Recorded Confirmed Type famotidine 20 mg PO DAILY 10/02/20 10/02/20 History psyllium husk (with sugar) [Fiber 1 tbsp PO DAILY 10/02/20 10/02/20 History (psyllium husk-sugar)] Past Med/Surg History Medical History GERD (gastroesophageal reflux disease) Surgical History No significant past surgical history Family History Brother Heart disease Social History Smoking Status: Never smoker Tobacco Type: Smokeless Tobacco (Dip or Chew) Hx Alcohol Use: Yes Alcohol type: beer Hx Substance Use: No Preferred Language: Mosotho Communication Ability: Effective Seismographer Required: No Beliefs That Will Affect Care: None Current Living Situation: Spouse Feels Safe at Home: Yes Assistive Devices: None Review of Systems Review of Systems: ROS per HPI, all other systems reviewed and negative Physical Exam Physical Exam: Please refer to Dr. Sheth's addendum for physical exam Results & Data Results & Data ([facility]) Vital Signs (Past 12 Hours) Vital Signs Temp Pulse Resp BP Pulse Ox 10/02/20 18:30 61 14 135/88 96 10/02/20 18:00 60 16 133/85 97 10/02/20 17:30 65 13 115/74 97 10/02/20 17:01 71 18 97 10/02/20 17:00 72 18 124/79 95 10/02/20 16:31 67 15 97 10/02/20 16:30 71 13 125/84 96 10/02/20 16:18 70 16 130/98 97 10/02/20 14:13 37.4 C 78 18 162/87 H 97 Laboratory Results Short CBC 10/02/20 Range/Units 14:45 WBC 6.70 (4.8-10.8) K/uL Hgb 15.7 (14.0-18.0) g/dL Hct 43.5 (42-52) % Plt Count 182 (130-400) K/uL BMP 10/02/20 10/02/20 14:45 16:03 Sodium 141 Potassium 4.0 Chloride 107 Carbon Dioxide 29 BUN 12 Creatinine 1.11 Glucose 108 H Calcium 8.9 Cardiac Enzymes 10/02/20 Range/Units 14:45 Troponin I < 0.015 (0-0.045) ng/ml Liver Function 10/02/20 10/02/20 Range/Units 14:45 16:03 Total Bilirubin 0.5 (0.2-1) mg/dl AST 17 (15-37) U/L ALT 30 (12-78) U/L Alkaline Phosphatase 70 (45-117) U/L Albumin 3.7 (3.4-5.0) gm/dl Diagnostic Findings Chest X-Ray 10/02/20 14:21 XR chest 1V portable CLINICAL HISTORY: Chest Pain COMPARISON STUDY: Chest radiograph January 07, 2019. FINDINGS: Lung volumes are normal. Lungs are clear. There is no pneumothorax or pleural effusion. Cardiac size is normal. Mediastinal contours are normal. There is no evidence for pulmonary edema. IMPRESSION: No acute cardiopulmonary findings. ACT 112: Negative or not required by law. Electronically signed by: Andrade Velasco M.D. 10/02/2020 3:21 PM Code Status & VTE Plan VTE Prophylaxis Plan VTE Prophylaxis will be ordered: Yes Supervising Physician Co-Signing Physician Notes Date of Service: October 02, 2020 History of physical exam obtained by me as detailed by Sandi BLANDON History notable for 55-year-old man with history of GERD presents to the ER complaining of chest pain that started at around lunchtime. Described as pinching, left-sided, referred to the left arm with numbness also worse with movement and pressing on the chest. Patient reported that he has some pinched vertebrae in the neck. Reports family history of heart problems and his brother in his 50s. On physical exam, General: Obese, no acute distress Eyes: PERRL, conjunctivae normal, not pale, anicteric sclerae, EOM intact bilaterally ENMT: External ear and nose normal, oropharynx normal Neck: Normal visual inspection, no tracheal deviation, no swelling noted Respiratory: Normal respiratory effort, no respiratory distress, lungs clear to auscultation, no crackles and no wheezes Cardiovascular: Pulse is RRR. S1 S2 no pedal edema Chest (Breasts): +Reproducible tenderness Gastrointestinal (Abdomen): Abdomen is not distended, soft, non-tender to palpation, no guarding, no palpable hepatosplenomegaly, normal bowel sounds Musculoskeletal: No cyanosis or clubbing, all extremities motor strength 5/5 Genitourinary: No CVA tenderness Neurologic: Alert and oriented x 3, No focal weakness, sensation grossly intact Psychiatric: Alert and oriented x 3, euthymic affect, no depressed affect Lab work is unremarkable. Troponin is normal Chest x-ray is unremarkable EKG showed T wave inversion in lead III. -Chest pain Chest pain appears atypical based on history and physical exam. Likely musculoskeletal. Patient had a negative stress test in the past. However, considering EKG changes and family history, we keep overnight with telemetry monitoring, trend troponins and get bread room hand input. With reported neck pain as well, will get MRI of cervical spine. Other plans as detailed by Sandi BLANDON
--- NOTE | 2020-10-02 19:42 | Communication Note ---
Date of Service: October 02, 2020 History of physical exam obtained by me as detailed by Sandi BLANDON History notable for 55-year-old man with history of GERD presents to the ER complaining of chest pain that started at around lunchtime. Described as pinching, left-sided, referred to the left arm with numbness also worse with movement and pressing on the chest. Patient reported that he has some pinched vertebrae in the neck. Reports family history of heart problems and his brother in his 50s. On physical exam, General: Obese, no acute distress Eyes: PERRL, conjunctivae normal, not pale, anicteric sclerae, EOM intact bilaterally ENMT: External ear and nose normal, oropharynx normal Neck: Normal visual inspection, no tracheal deviation, no swelling noted Respiratory: Normal respiratory effort, no respiratory distress, lungs clear to auscultation, no crackles and no wheezes Cardiovascular: Pulse is RRR. S1 S2 no pedal edema Chest (Breasts): +Reproducible tenderness Gastrointestinal (Abdomen): Abdomen is not distended, soft, non-tender to palpation, no guarding, no palpable hepatosplenomegaly, normal bowel sounds Musculoskeletal: No cyanosis or clubbing, all extremities motor strength 5/5 Genitourinary: No CVA tenderness Neurologic: Alert and oriented x 3, No focal weakness, sensation grossly intact Psychiatric: Alert and oriented x 3, euthymic affect, no depressed affect Lab work is unremarkable. Troponin is normal Chest x-ray is unremarkable EKG showed T wave inversion in lead III. -Chest pain Chest pain appears atypical based on history and physical exam. Likely musculoskeletal. Patient had a negative stress test in the past. However, considering EKG changes and family history, we keep overnight with telemetry monitoring, trend troponins and get assistant foreman input. With reported neck pain as well, will get MRI of cervical spine. Other plans as detailed by Sandi BLANDON
[2020-10-02] MEDS ORDERED: NITROGLYCERIN SL 0.4 MG/TAB TAB SL PRN (20:40)
[2020-10-02] MEDS ORDERED: ACETAMINOPHEN 325 MG TAB PO PRN (20:40)
--- NOTE | 2020-10-02 21:20 | XRay Report ---
BONY ORBITS 3 VIEWS CLINICAL HISTORY: MRI clearance. FINDINGS: 3 views of the bony orbits are obtained. No prior studies are available for comparison at t he time of dictation. There is no radiodense/metallic foreign body seen in the region of the bony orb its. The bony orbits are intact as imaged. The visualized paranasal sinuses and the mastoid air cells appear clear. The imaged calvarium appears intact. IMPRESSION: There is no radiodense/metallic foreign body seen in the region of the bony orbits. ACT 112: Negative or not required by law. Electronically signed by: Franky Isbell M.D. 10/02/2020 9:18 PM
[2020-10-03 05:55] LABS: Hemoglobin 14.9 g/dL (14.0-18.0); Mean Corpuscular Hemoglobin 30.9 pg (25-34); Mean Corpuscular Hgb Conc 35.5 g/dL (32-36); Mean Corpuscular Volume 87.1 fL (80-100); Mean Platelet Volume 9.2 fL (7.4-10.4); Platelet Count 180 K/uL (130-400); RDW Coefficient of Variation 12.6 % (11.5-14.5); RDW Standard Deviation 40.2 fL (36.4-46.3); Red Blood Count 4.82 M/uL (4.7-6.1); White Blood Count 7.44 K/uL (4.8-10.8)
[2020-10-03 06:23] LABS: BUN Creatinine Ratio 13.8 (10-20); Blood Urea Nitrogen 13 mg/dl (7-18); Calcium 9.1 mg/dl (8.5-10.1); Carbon Dioxide 31 mmol/L (21-32); Chloride 108 mmol/L (98-107); Creatinine Clr Calc Pharmacy 94.7 ml/min; Est GFR (African American) 104.6 ml/min; Est GFR (Non-African American) 90.3 ml/min; Glucose 115 mg/dl (70-99); Potassium 4.2 mmol/L (3.5-5.1); Sodium 141 mmol/L (136-145)
[2020-10-03 06:27] LABS: Chol HDL Ratio 3; Cholesterol 202 mg/dl (0-200); HDL Cholesterol 62 mg/dl; LDL Cholesterol Calculated 124 mg/dl; Triglycerides 82 mg/dl (0-150); Troponin I < 0.015 ng/ml (0-0.045); VLDL Cholesterol 16 mg/dl
[2020-10-03] MEDS ORDERED: FAMOTIDINE 20 MG TAB PO SCH (09:00)
[2020-10-03] MEDS ORDERED: PSYLLIUM 58.6% POWDER PACKET PO SCH (09:00)
[2020-10-03] MEDS ORDERED: ASPIRIN 81 MG ECTAB PO SCH (09:00)
--- NOTE | 2020-10-03 09:41 | Cardiology Consultation ---
Date of Consultation October 03, 2020 Assessment & Plan (1) Atypical chest pain: Patient presents with symptoms somewhat atypical for angina, with left chest discomfort, left arm pain, reproduced on palpation of the chest, and on turning his arm. MRI of the cervical spine has been performed, results of which are pending. Total cholesterol 202, LDL cholesterol 124, HDL cholesterol 62. He does have a family history of ischemic heart disease in his mother and in his brother. I think his serial negative enzymes are reassuring. He had a nonischemic stress echocardiogram performed in 2019. Patient does perform a physical job, and I think it would be helpful to make sure his symptoms are not elicited with aerobic exercise, and therefore we will proceed with an exercise stress echocardiogram. Patient agreeable. History of Present Illness Attending Physician: Alyson Sheth MD History of Present Illness Mr Santillan is a 55 year old male seen in cardiology consultation per the request of JAMIA Kohler of the [facility] hospitalist group for the evaluation of chest pain. 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 He lives heavy barrels at regular intervals, but had not performed anything overly exerting yesterday. In the mid afternoon he developed a midline chest discomfort as well as numbness of his left hand. He states that he has been diagnosed with pinched nerves in his cervical spine and his hand symptoms of feeling like his hand and distal portion of his left arm "falls asleep "dizziness. Due to concerns, the patient presented to emergency department. He has since felt better. He is able to reproduce his chest discomfort with a point palpation adjacent to the left chest. His symptoms of numbness in his left hand can be elicited by turning his head. Troponin I has been undetectable x3 measurements thus far overnight and today. EKG performed yesterday and again this morning reveals no acute repolarization changes. Subtle T wave inversion is noted in lead III which may be a variant of normal. FAMILY HISTORY: Father is alive and healthy with no history of heart disease Mother has a history of coronary heart disease and CABG in her 70s His brother has a history of coronary stent at about the age of 60 SOCIAL HISTORY: He is a non-smoker, does use smokeless tobacco Works in waste management at [employer] as noted above Allergies Allergy/AdvReac Type Severity Reaction Status Date / Time No Known Allergies Allergy Verified 10/02/20 17:22 Home Medications Medication Instructions Recorded Confirmed Type famotidine 20 mg PO DAILY 10/02/20 10/02/20 History psyllium husk (with sugar) [Fiber 1 tbsp PO DAILY 10/02/20 10/02/20 History (psyllium husk-sugar)] Patient History Medical History GERD (gastroesophageal reflux disease) Surgical History No significant past surgical history Family History Brother Heart disease Social History Smoking Status: Never smoker Tobacco Type: Smokeless Tobacco (Dip or Chew) Second Hand Exposure: No; Do You Dip or Chew Tobacco: Yes; Tobacco Cessation Education Requested by Patient: No Hx Alcohol Use: Yes Alcohol type: beer Hx Substance Use: No Preferred Language: Spanish Communication Ability: Effective Bonding Molder Required: No Beliefs That Will Affect Care: None Current Living Situation: Spouse and Other Current Living Situation Comment: DAUGHTER AND SON IN LAW Other Information That Helps Us Care for You: No Feels Safe at Home: Yes Safety Concerns: Feels Safe At This Time Assistive Devices: Denture - Upper Assistive Devices Comment: PARTIAL UPPER PLATE Review of Systems Review of Systems: All systems reviewed & are unremarkable except as noted in HPI & below Physical Exam Physical Exam: Temp Pulse Resp BP Pulse Ox 36.7 C 62 18 110/72 97 10/03/20 07:57 10/03/20 07:57 10/03/20 07:57 10/03/20 07:57 10/03/20 07:57 Constitutional: WD/WN, vitals as above Respiratory: normal respiratory effort, lungs clear to auscultation Cardiovascular: RRR, no murmur, no edema Gastrointestinal (Abdomen): normal bowel sounds, soft, nontender, no hepatosplenomegaly Neurologic: PERRL, EOMI, accommodation nl, no face palsy, no dysarthria Sensation of left hand and forearm "falling asleep "reproduced with turning his head. Results & Data ([facility]) Vital Signs (Past 12 Hours) Vital Signs Temp Pulse Pulse Pulse Resp BP Pulse Ox 06/15/21 07:57 36.7 C 62 18 110/72 97 10/03/20 03:21 36.8 C 67 18 109/72 97 10/02/20 23:29 36.7 C 59 L 18 111/57 L 96 10/02/20 22:20 63 Laboratory Results Cardiac Enzymes 10/02/20 10/02/20 10/02/20 Range/Units 14:45 16:03 23:01 AST 17 (15-37) U/L Troponin I < 0.015 < 0.015 (0-0.045) ng/ml 10/03/20 10/03/20 Range/Units 05:23 05:23 AST (15-37) U/L Troponin I Cancelled < 0.015 (0-0.045) ng/ml Coagulation 10/02/20 Range/Units 14:45 PT Cancelled APTT Cancelled Lipids 10/03/20 Range/Units 05:23 Triglycerides 82 (0-150) mg/dl Cholesterol 202 H (0-200) mg/dl HDL Cholesterol 62 mg/dl Cholesterol/HDL Ratio 3 CBC 10/02/20 10/03/20 Range/Units 14:45 05:23 WBC 6.70 7.44 (4.8-10.8) K/uL RBC 5.08 4.82 (4.7-6.1) M/uL Hgb 15.7 14.9 (14.0-18.0) g/dL Hct 43.5 42.0 (42-52) % Plt Count 182 180 (130-400) K/uL Neut # (Auto) 5.02 (1.4-6.5) K/uL Lymph # (Auto) 0.97 L (1.2-3.4) K/uL [place] # (Auto) 0.53 (0.11-0.59) K/uL Eos # (Auto) 0.13 (0-0.5) K/uL Baso # (Auto) 0.04 (0-0.2) K/uL Comprehensive Metabolic Panel 10/02/20 10/02/20 10/03/20 Range/Units 14:45 16:03 05:23 Sodium 141 141 (136-145) mmol/L Potassium 4.0 4.2 (3.5-5.1) mmol/L Chloride 107 108 H (98-107) mmol/L Carbon Dioxide 29 31 (21-32) mmol/L BUN 12 13 (7-18) mg/dl Creatinine 1.11 0.94 (0.6-1.4) mg/dl Glucose 108 H 115 H (70-99) mg/dl Calcium 8.9 9.1 (8.5-10.1) mg/dl AST 17 (15-37) U/L ALT 30 (12-78) U/L Alkaline Phosphatase 70 (45-117) U/L Total Protein 7.1 (6.4-8.2) gm/dl Albumin 3.7 (3.4-5.0) gm/dl Intake and Output 10/02/20 10/03/20 10/03/20 22:59 06:59 14:59 Intake Total 0 / 240 240 / 240 Balance 0 / 240 240 / 240 Intake: Oral 0 / 240 240 / 240 Other: # Unmeasured Voids 3 Weight 90.4 kg 91.6 kg Weight Measurement Method Standing Scale Standing Scale
--- NOTE | 2020-10-03 10:22 | Magnetic Resonance Report ---
MRI OF THE LUMBAR SPINE WITHOUT IV CONTRAST CLINICAL HISTORY: Left upper extremity numbness. COMPARISON STUDY: Radiographs of the cervical spine dated 11/11/2016. TECHNIQUE: MRI of the cervical spine is performed utilizing various T1 and T2-weighted sequences in t he axial, sagittal, and coronal planes. IV contrast was not administered for this examination. FINDINGS: Cervical spine: Vertebral body height and alignment are maintained throughout the cervical spine. Sma ll anterior osteophytes are noted in the lower cervical region. The atlantodental articulation is judy ntained. The spinous processes appear intact. A hemangioma is noted in the spinous process of T1. Chr onic degenerative endplate change is noted at C5-C6 and C6-C7. No endplate edema is identified. No de structive bony lesion is seen. Intervertebral discs: Degenerative disc desiccation is noted throughout the cervical spine. Mild loss of height is seen at C5-C6 and C6-C7. Spinal cord: The cervical spinal cord is normal in morphology and signal intensity. C2-C3: Uncovertebral and facet arthropathy cause mild bilateral neural foraminal stenosis. The centra l canal is clear. C3-C4: Uncovertebral and facet arthropathy contribute to mild to moderate left and mild right neural foraminal narrowing. The central canal is clear. C4-C5: Uncovertebral and facet arthropathy contribute to moderate bilateral neural foraminal stenosis , right greater than left. The central canal is clear. C5-C6: A posterior disc osteophyte complex effaces the ventral subarachnoid space. Uncovertebral and facet arthropathy cause severe left and moderate to severe right neural foraminal stenosis. C6-C7: A posterior disc osteophyte complex abuts the ventral cord. Uncovertebral and facet arthropath y contribute to moderate bilateral neural foraminal stenosis. C7-T1: Unremarkable. Soft tissues: The prevertebral and paraspinous soft tissues are normal as visualized. Brain parenchyma: Imaged brain parenchyma at the skull base is within normal limits. IMPRESSION: 1. Multilevel cervical spondylosis as above. See discussion for detailed level by level analysis. 2. The cervical spinal cord is normal in morphology and signal intensity. 3. No destructive bony lesion is seen. Dictated: 10/03/2020 9:26 AM Transcribed: 10/03/2020 10:10 AM Tiffanie [id number] Jyoti Electronically signed by: Franky Isbell M.D. 10/03/2020 10:21 AM
--- NOTE | 2020-10-03 12:11 | Electrocardiogram Report ---
Test Reason : Blood Pressure : / mmHG Vent. Rate : 065 BPM Atrial Rate : 065 BPM P-R Int : 140 ms QRS Dur : 090 ms QT Int : 426 ms P-R-T Axes : 045 072 010 degrees QTc Int : 443 ms Normal sinus rhythm Normal ECG When compared with ECG of 02-OCT-2020 14:12, No significant change was found Confirmed by Carlos Norris ([id number]) on 10/03/2020 12:10:41 PM Referred By: REFERRED SELF Confirmed By:Rashard Norris
--- NOTE | 2020-10-03 12:16 | Communication Note ---
Date of Service: October 03, 2020 Non ischemic stress echo. LDL 124. 10 year risk of ASCVD event 4%, therefore since less than 7.5% statin not indicated. Continue heart healthy diet and exercise. Stable for discharge from cardiac perspective.
--- NOTE | 2020-10-03 12:53 | Discharge Summary ---
Date of Service October 03, 2020 Admission HPI Per Admitting Provider 53 y.o male with PMH GERD and other problems listed below who presents to the ED for evaluation of chest pain. Patient reports that after lunch while at work today he developed a left-sided chest pain. Patient reports issues with chest pain for the past couple of years. Has a history of GERD and was referred for EGD however has not been completed yet. Patient also reports a history of " pinched nerves" in the neck. States that he received injections in the neck in the past and was referred for MRI however that has not been completed yet either. Patient reports completing 6 weeks of physical therapy for his neck which did improve his symptoms for a period of time. Today, patient describes the pain as being located in left side of his chest and describes it as sharp in nature. Also has associated neck pain with left arm numbness. Pain seems to radiate from the neck into the shoulder and then down into the chest. Pain is worse with movement of the left arm. Patient denies associated shortness of b reath, diaphoresis, nausea, lightheadedness, dizziness, syncopal events. No other recent illnesses, fevers, chills. Denies abdominal pain, vomiting, diarrhea. No urinary symptoms. In the ED, EKG shows new T wave inversions in the inferior leads. Initial troponin is negative. Patient was given a topical nitroglycerin without any change in his symptoms. Patient is hemodynamically stable. He was given a full dose aspirin. Admission Exam Per Admitting Provider General: Obese, no acute distress Eyes: PERRL, conjunctivae normal, not pale, anicteric sclerae, EOM intact bilaterally ENMT: External ear and nose normal, oropharynx normal Neck: Normal visual inspection, no tracheal deviation, no swelling noted Respiratory: Normal respiratory effort, no respiratory distress, lungs clear to auscultation, no crackles and no wheezes Cardiovascular: Pulse is RRR. S1 S2 no pedal edema Chest (Breasts): +Reproducible tenderness Gastrointestinal (Abdomen): Abdomen is not distended, soft, non-tender to palpation, no guarding, no palpable hepatosplenomegaly, normal bowel sounds Musculoskeletal: No cyanosis or clubbing, all extremities motor strength 5/5 Genitourinary: No CVA tenderness Neurologic: Alert and oriented x 3, No focal weakness, sensation grossly intact Psychiatric: Alert and oriented x 3, euthymic affect, no depressed affect Principal Diagnosis Chest pain Possible cervical radiculopathy Discharge Exam Constitutional + well hydrated; no acute distress Eyes PERRL, conjunctivae normal, anicteric sclerae ENMT external ear and nose normal, oropharynx normal Respiratory normal respiratory effort, lungs clear to auscultation Cardiovascular RRR, no murmur, no edema Gastrointestinal (Abdomen) normal bowel sounds, soft, nontender, no hepatosplenomegaly Musculoskeletal no cyanosis or clubbing, extremities motor strength 5/5 Neurologic PERRL, EOMI, accommodation nl, no face palsy, no dysarthria Psychiatric A+Ox3, euthymic affect Discharge Data Allergies Allergy/AdvReac Type Severity Reaction Status Date / Time No Known Allergies Allergy Verified 10/02/20 17:22 Consultations 10/02/20 18:26 ED Decision to Admit Stat 10/02/20 20:40 Consult Cardiology Routine Ordered Studies 10/02/20 19:27 MR cervical spine wo con Routine Cervical spine: Vertebral body height and alignment are maintained throughout the cervical spine. Small anterior osteophytes are noted in the lower cervical region. The atlantodental articulation is maintained. The spinous processes appear intact. A hemangioma is noted in the spinous process of T1. Chronic degenerative endplate change is noted at C5-C6 and C6-C7. No endplate edema is identified. No destructive bony lesion is seen. Intervertebral discs: Degenerative disc desiccation is noted throughout the cervical spine. Mild loss of height is seen at C5-C6 and C6-C7. Spinal cord: The cervical spinal cord is normal in morphology and signal intensity. C2-C3: Uncovertebral and facet arthropathy cause mild bilateral neural foraminal stenosis. The central canal is clear. C3-C4: Uncovertebral and facet arthropathy contribute to mild to moderate left and mild right neural foraminal narrowing. The central canal is clear. C4-C5: Uncovertebral and facet arthropathy contribute to moderate bilateral neural foraminal stenosis, right greater than left. The central canal is clear. C5-C6: A posterior disc osteophyte complex effaces the ventral subarachnoid space. Uncovertebral and facet arthropathy cause severe left and moderate to severe right neural foraminal stenosis. C6-C7: A posterior disc osteophyte complex abuts the ventral cord. Uncovertebral and facet arthropathy contribute to moderate bilateral neural foraminal stenosis. C7-T1: Unremarkable. Soft tissues: The prevertebral and paraspinous soft tissues are normal as visualized. Brain parenchyma: Imaged brain parenchyma at the skull base is within normal limits. IMPRESSION: 1. Multilevel cervical spondylosis as above. See discussion for detailed level by level analysis. 2. The cervical spinal cord is normal in morphology and signal intensity. 3. No destructive bony lesion is seen. Hospital Course (1) Atypical chest pain: Patient's chest pain is atypical, reproducible and worsened with neck movement EKG showed TWI in Lead III. Troponin trend was negative Considering significant family cardiac history and EKG change, exercise stress was done which was negative for ischemia MRI cervical spine was also done with result as detailed above. Patient's pain may also be related to Cervical radiculopathy Patient stated he had followed up with Ortho in the past but had not got the MRI. Patient advised to follow up with Ortho who will review MRI and continue management (2) GERD (gastroesophageal reflux disease): Continue famotidine Patient encouraged to schedule outpatient EGD as previously recommended Total Time Total Time Spent Total Time Spent (In Minutes): 35 Total Time Includes: Examination of the Patient, Discharge Planning, Medication Reconciliation and Communication With Other Providers Discharge Plan Discharge Items Patient Disposition: Home - Self-Care Reason For Visit: CHEST PAIN Discharge Diagnosis: Chest pain Activity: Resume your previous activity Non-emergency contact: Primary Care Provider Call non-emergency contact if: you have any medication questions and your symptoms worsen Follow-up/Referrals: Jake Ba MD [Primary Care Provider] - (Date & Time 10/06/2020 11:00 AM Provider Jake Ba III, MD Department [facility] ) Diet: Heart Healthy Addtl Attending Provider Instructions: Mr Santillan You came to the hospital complaining of chest pain. You were extensively evaluated. Your chest pain is musculoskeletal. Your stress test was negative for ischemia or heart related chest pain You can use tylenol as needed for this. You can follow up with your surgeon with respect to your neck pain It was a pleasure taking care of you Pending Studies at Discharge: No Stand-Alone Forms: My [employer], Smoking Cessation Medications and DC Order Prescriptions: New acetaminophen 325 mg Tablet 650 mg PO Q4H PRN (Reason: pain) Qty: 30 RF: 0 Continued famotidine 20 mg Tablet 20 mg PO DAILY RF: 0 Fiber (psyllium husk-sugar) 3.4 gram/7 gram Powder 1 tbsp PO DAILY RF: 0 Discharge Orders: Discharge Order (Routine); Ordered 10/03/20 Ordered By: Alyson Sheth Admission Data Admit Date/Time: 10/02/20 18:52 Attending Provider: Alyson Sheth I. Admit Provider: Alyson Sheth I. Primary Care Provider: Jake Ba Other Providers: Alyson Sheth I. ; Fran Hyde Other Interventions: Discharge Summary Assessment (RN) Last Done: 10/03/20 13:06
== END 2020-10-03 13:20 | disposition home or self-care (01) ==
LOC: ED 14:06 → 2E 14:06